=== PATIENT | female | born 1955 | race Caucasian/White ===

== ENCOUNTER → 2021-01-13 | Outpatient (CLI) | payer MEDICARE | LOC: CT 09:05 → NM 10:00 | DX: I73.9 Peripheral vascular disease, unspecified (principal); I10 Essential (primary) hypertension | CPT/HCPCS: 36415; 75635; 78452; 82565; 84520; 93017; A9502; J2785; Q9967 ==

== ENCOUNTER → 2021-05-02 | Outpatient (CLI) | payer MEDICARE ==
[~2021-05-02] MED LIST: ADULT LOW DOSE81 MG PO; ALBUTEROL INH; BACLOFEN20 MG PO; DITROPAN 5 MG TA5 MG PO; EFFEXOR XR 75 M75 MG PO; FENOFIBRATE160 MG PO; HYDROCODON-ACE1 EAC6 PO; ISOSORBIDE MONO30 MG PO; LEVETIRACETAM750 MG PO; LEVOTHYROXINE112 MCG PO; LOSARTAN-HCTZ1 EAC1 PO; MELATONIN10 M2 PO; MELOXICAM15 MG PO; OMEPRAZOLE20 MG PO; PRAVASTATIN SOD80 MG PO
[2021-05-02 11:53] LABS: HEMOGLOBIN 14.1 gm/dl (12.3-15.3); RED BLOOD COUNT 4.38 M/UL (4.00-5.10); WHITE BLOOD COUNT 6.7 K/UL (4.5-11.0)
== END ==
LOC: OPSV2 10:30 → EDSTATUS 10:30 → OPSV2 10:53
PROVIDERS: Orthopaedic Surgery
DX: Z01.818 Encounter for other preprocedural examination (principal); M16.11 Unilateral primary osteoarthritis, right hip
CPT/HCPCS: 36415; 80048; 83036; 85027; 87081; 93005

== ENCOUNTER 2021-05-16 06:48 | Day surgery (SDC) | payer MEDICARE ==
[~2021-05-16] VITALS: Ht 165.1 cm; Wt 93.4 kg
[2021-05-16] MEDS ORDERED: ENDOCET 10-3251 EACH PO (11:35)
[2021-05-16] MEDS ORDERED: LO-DOSE ASPIRIN81 MG PO (11:35)
[2021-05-17 04:23] LABS: HEMOGLOBIN 10.6 gm/dl (12.3-15.3); RED BLOOD COUNT 3.37 M/UL (4.00-5.10); WHITE BLOOD COUNT 11.7 K/UL (4.5-11.0)
[2021-05-17 04:52] LABS: BUN/CREATININE RATIO 24 (0-10)
[2021-05-17] MEDS ORDERED: LOSARTAN-HCTZ1 EAC2 PO (11:47)
== END 2021-05-17 13:33 | disposition home health service (06) ==
LOC: OR 06:48 → EDSTATUS 12:30 → M/S 15:33 → OR 05-17 13:33
PROVIDERS: Orthopaedic Surgery
DX: M16.11 Unilateral primary osteoarthritis, right hip (principal); E11.9 Type 2 diabetes mellitus without complications; I10 Essential (primary) hypertension; J44.9 Chronic obstructive pulmonary disease, unspecified; K21.9 Gastro-esophageal reflux disease without esophagitis; Z79.82 Long term (current) use of aspirin; Z87.891 Personal history of nicotine dependence; R79.89 Other specified abnormal findings of blood chemistry; E03.9 Hypothyroidism, unspecified; E66.01 Morbid (severe) obesity due to excess calories; Z20.822 Contact with and (suspected) exposure to COVID-19
CPT/HCPCS: 36415; 73501; 73502; 76000; 80048; 82962; 85027; 86850; 86900; 86901; 97110; 97110-GP-CQ; 97116-GP-CQ; 97162; 97165; 97530; 97535; C1776; J0690; J1100; J1170; J1885; J2270; J2370; J2405; J2704; J2795; J3370; J7030; J7050; J7120